=== PATIENT | male | born 1980 | race Caucasian/White ===

== ENCOUNTER → 2017-10-24 | Outpatient (CLI) | payer OTHER | LOC: M WUC 08:48 | DX: R07.1 Chest pain on breathing (principal); I51.7 Cardiomegaly | CPT/HCPCS: 71020 ==

== ENCOUNTER → 2018-01-15 | Outpatient (CLI) | payer OTHER ==
[2018-01-15 14:22] LABS: ESTIMATED AVERAGE GLUCOSE 108 MG/DL (60-110); HEMOGLOBIN A1c 5.4 %
[2018-01-15 14:30] LABS: FREE T4 0.85 NG/DL (0.76-1.46)
[2018-01-16 10:15] LABS: THYROID PEROXIDASE ANTIBODY > 1300.0 U/ML (<60.0)
[2018-01-16 10:16] LABS: THYROGLOBULIN ANTIBODY > 500.0 U/ML (<60.0)
[2018-01-17 00:07] LABS: THYROID BINDING GLOBULIN 24 ug/mL (13-39)
== END ==
LOC: M WUC 09:52
DX: E03.9 Hypothyroidism, unspecified (principal); R73.01 Impaired fasting glucose
CPT/HCPCS: 84443

== ENCOUNTER → 2018-02-23 | Outpatient (CLI) | payer OTHER ==
[2018-02-23 17:21] LABS: URIC ACID 4.8 MG/DL (3.5-7.2)
[2018-02-23 17:21] LABS: FREE T4 0.99 NG/DL (0.76-1.46); RHEUMATOID FACTOR QUANT < 10.0 IU/ML (<15.0)
== END ==
LOC: M WUC 13:27
DX: E03.8 Other specified hypothyroidism (principal); I30.0 Acute nonspecific idiopathic pericarditis
CPT/HCPCS: 84443

== ENCOUNTER → 2018-11-07 | Outpatient (CLI) | payer OTHER ==
[2018-11-07 17:55] LABS: FREE T4 1.05 NG/DL (0.76-1.46); THYROID STIMULATING HORMONE 15.4 uIU/ML (0.358-3.740)
== END ==
LOC: M WUC 09:52
PROVIDERS: ATTEND Family Medicine
DX: E03.8 Other specified hypothyroidism (principal)

== ENCOUNTER → 2019-01-17 | Outpatient (CLI) | payer OTHER ==
[2019-01-17 18:57] LABS: FREE T4 1.21 NG/DL (0.76-1.46); THYROID STIMULATING HORMONE 8.17 uIU/ML (0.358-3.740)
== END ==
LOC: M WUC 11:02
PROVIDERS: ATTEND Family Medicine
DX: E03.9 Hypothyroidism, unspecified (principal)

== ENCOUNTER → 2022-12-16 | Outpatient (CLI) | payer OTHER | LOC: M PLAIMG 12:16 | PROVIDERS: ATTEND Internal Medicine Hematology | DX: J20.9 Acute bronchitis, unspecified (principal); R91.8 Other nonspecific abnormal finding of lung field ==

== ENCOUNTER 2023-12-24 12:54 | Emergency (ER) | payer OTHER ==
[~2023-12-24] VITALS: Ht 190.5 cm; Wt 117.8 kg
[2023-12-24] MEDS ORDERED: LEVO1TAB40 PO (13:07)
[2023-12-24] MEDS ORDERED: ATOR1TAB21 PO (13:07)
[2023-12-24] MEDS ORDERED: AMLO-179 PO (13:07)
[2023-12-24] MEDS ORDERED: LEVO112T2 PO (13:07)
[2023-12-24 13:52] LABS: BASO % 0.3 % (0.0-1.0); EOS % 0.2 % (0.0-3.0); HEMATOCRIT 49.7 % (42.0-52.0); HEMOGLOBIN 17.3 g/dl (13.5-17.5); LYMPH # 2.1 10^3/uL (1.5-5.0); LYMPH % 16.6 % (24.0-44.0); MEAN CORPUSCULAR HEMOGLOBIN 29.6 pg (27.0-33.0); MEAN CORPUSCULAR HGB CONC 34.8 g/dl (32.0-36.5); MEAN CORPUSCULAR VOLUME 85.1 fl (80.0-96.0); MONO # 0.5 10^3/uL (0.0-0.8); MONO % 4.2 % (2.0-8.0); NEUTROPHILS % 78.3 % (36.0-66.0); PLATELET COUNT, AUTOMATED 269 10^3/uL (150-450); RED BLOOD COUNT 5.84 10^6/uL (4.30-6.10); WHITE BLOOD COUNT 12.8 10^3/uL (4.0-10.0)
[2023-12-24 14:33] VITALS: BP 153/88; O2SAT 96
[2023-12-24 15:01] LABS: CK-MB VALUE MASS < 1.0 NG/ML (<3.6)
[2023-12-24 15:02] VITALS: TEMP 98.1
[2023-12-24 15:08] LABS: PROCALCITONIN <0.04 ng/ml
[2023-12-24 15:09] LABS: ALBUMIN 3.5 G/DL (3.2-5.2); ALKALINE PHOSPHATASE 122 U/L (46-116); ALT/SGPT 28 U/L (7.0-40); AST/SGOT 22 U/L (<34); BILIRUBIN,TOTAL 0.4 MG/DL (0.3-1.2); BLOOD UREA NITROGEN 15 MG/DL (9-23); CALCIUM LEVEL 9.1 MG/DL (8.5-10.1); CARBON DIOXIDE LEVEL 24 MMOL/L (20-31); CHLORIDE LEVEL 106 MMOL/L (98-107); CREATININE FOR GFR 0.83 MG/DL (0.70-1.30); GLOMERULAR FILTRATION RATE > 60.0 (>60); GLUCOSE, FASTING 117 MG/DL (60-100); POTASSIUM SERUM 4.2 MMOL/L (3.5-5.1); SODIUM LEVEL 139 MMOL/L (136-145); TOTAL PROTEIN 7.6 G/DL (5.7-8.2)
[2023-12-24] MEDS: cefTRIAXone SOD 1 GM in D5W MINI-BAG PLUS 50 ML IV ONE (15:11)
[2023-12-24] MEDS: DOXYCYCLINE HYCLATE 100MG TABLET PO ONE (15:12)
[2023-12-24] MEDS ORDERED: ISOVUE-370 76% 100ML VIAL As Ordered ONE (15:24)
[2023-12-24 16:11] LABS: CK-MB VALUE MASS < 1.0 NG/ML (<3.6)
[2023-12-24 16:14] LABS: CPK CREATINE PHOSPHOKINASE 85 U/L (46-171); MB/CK RELATIVE INDEX 1.17 (< OR =4)
[2023-12-24 16:21] LABS: PROCALCITONIN <0.04 ng/ml
[2023-12-24] MEDS ORDERED: VENTAER INH (16:32)
[2023-12-24] MEDS ORDERED: DOXY-443 PO (16:32)
== END 2023-12-24 16:41 | disposition home or self-care (01) ==
LOC: M ED 12:54
DX: J18.9 Pneumonia, unspecified organism (principal); J43.9 Emphysema, unspecified; R91.8 Other nonspecific abnormal finding of lung field; I10 Essential (primary) hypertension; Z87.09 Personal history of other diseases of the respiratory system; Z87.01 Personal history of pneumonia (recurrent); Z79.82 Long term (current) use of aspirin; Z80.1 Family history of malignant neoplasm of trachea, bronchus and lung; Z82.49 Family history of ischemic heart disease and other diseases of the circulatory system; F17.200 Nicotine dependence, unspecified, uncomplicated; Z79.899 Other long term (current) drug therapy
CPT/HCPCS: 71046; 71275; 80053; 82550; 82553; 83880; 84145; 84484; 85025; 87486; 87581; 87633; 87798; 93005; 96365; 99284; J0696; Q9967

== ENCOUNTER → 2024-01-19 | Outpatient (CLI) | payer OTHER ==
[~2024-01-19] MED LIST: AMLO-179 PO; ATOR1TAB21 PO; DOXY-443 PO; LEVO112T2 PO; LEVO1TAB40 PO; VENTAER INH
== END ==
LOC: M PLARAD 10:27
PROVIDERS: ATTEND Internal Medicine Hematology
DX: C80.1 Malignant (primary) neoplasm, unspecified (principal)
CPT/HCPCS: 78815; A9552

== ENCOUNTER → 2024-08-04 | Outpatient (CLI) | payer OTHER ==
[~2024-08-04] MED LIST changes: +DOXY-441 PO; -DOXY-443 PO; +ISOVUE-370 76% 100ML VIAL As Ordered ONE
== END ==
LOC: M RAD 07:26
PROVIDERS: ATTEND Internal Medicine Hematology
DX: J18.9 Pneumonia, unspecified organism (principal)
CPT/HCPCS: 71260; Q9967

== ENCOUNTER → 2025-01-31 | Outpatient (CLI) | payer OTHER ==
[~2025-01-31] MED LIST changes: -ISOVUE-370 76% 100ML VIAL As Ordered ONE
[2025-01-31 18:52] LABS: CHOLESTEROL RISK RATIO 6.15 (<5); HDL CHOLESTEROL 31.2 MG/DL (>40); NON-HDL-C 160.8 MG/DL
[2025-01-31 18:55] LABS: THYROID STIMULATING HORMONE 7.201 uIU/ML (0.55-4.78)
[2025-01-31 18:59] LABS: HEMOGLOBIN A1c 5.2 % (4.0-6.0)
== END ==
LOC: M PLALAB 14:32
PROVIDERS: ATTEND Student in an Organized Health Care Education/Training Program
DX: E78.2 Mixed hyperlipidemia (principal); E03.9 Hypothyroidism, unspecified; Z13.1 Encounter for screening for diabetes mellitus

== ENCOUNTER → 2025-02-03 | Outpatient (CLI) | payer OTHER | LOC: M PLAIMG 07:26 | PROVIDERS: ATTEND Internal Medicine Pulmonary Disease | DX: R91.8 Other nonspecific abnormal finding of lung field (principal); J44.9 Chronic obstructive pulmonary disease, unspecified; J43.9 Emphysema, unspecified; J47.9 Bronchiectasis, uncomplicated; E05.90 Thyrotoxicosis, unspecified without thyrotoxic crisis or storm ==

== ENCOUNTER → 2025-06-24 | Outpatient (CLI) | payer OTHER | LOC: M RAD 08:57 | PROVIDERS: ATTEND Internal Medicine Pulmonary Disease | DX: R91.8 Other nonspecific abnormal finding of lung field (principal); J43.9 Emphysema, unspecified ==

== ENCOUNTER → 2025-07-07 | Outpatient (REF) | payer OTHER | LOC: M SFHCPLAZ 15:14 | PROVIDERS: ATTEND Family Medicine | DX: Z53.9 Procedure and treatment not carried out, unspecified reason (principal) ==

== ENCOUNTER → 2025-09-20 | Outpatient (CLI) | payer OTHER | LOC: M RAD 16:39 | PROVIDERS: ATTEND Internal Medicine Pulmonary Disease | DX: R91.8 Other nonspecific abnormal finding of lung field (principal) ==